=== PATIENT | male | born 1995 | race Caucasian/White ===

== ENCOUNTER 2017-12-06 20:50 | Emergency (ER) | payer OTHER ==
[~2017-12-06] VITALS: Ht 182.9 cm; Wt 68.0 kg
[~2017-12-06 20:50] MED LIST: NOHOMEMEDICATIONS; NORCO 5-325 TA1 EACH PO; ROBAXIN500 MG PO; TRAMADOL 50 MG50 MG PO
[2017-12-06] MEDS ORDERED: CYMBALTA60 MG PO (20:55)
[2017-12-06] MEDS ORDERED: ROBAXIN500 MG PO (21:38)
[2017-12-06 21:44] VITALS: BP 116/72
== END 2017-12-06 21:47 | disposition home or self-care (01) ==
LOC: M.ERS 20:50
DX: M25.461 Effusion, right knee (principal); S76.192A Other specified injury of left quadriceps muscle, fascia and tendon, initial encounter; S76.191A Other specified injury of right quadriceps muscle, fascia and tendon, initial encounter; M19.90 Unspecified osteoarthritis, unspecified site; Z88.6 Allergy status to analgesic agent; X50.1XXA Overexertion from prolonged static or awkward postures, initial encounter; Y93.89 Activity, other specified; Y92.89 Other specified places as the place of occurrence of the external cause; Y99.8 Other external cause status